=== PATIENT | male | born 1995 | race African-American/Black ===

== ENCOUNTER 2020-10-12 23:35 | Emergency (ER) | payer OTHER ==
[~2020-10-12] VITALS: Ht 185.4 cm; Wt 70.3 kg
[2020-10-12 23:45] VITALS: BP 110/64
--- NOTE | 2020-10-12 23:54 | NUR ---
PT TAKEN TO BED 12
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
[2020-10-13] MEDS ORDERED: MORPHINE SULFATE 4 MG/ML SYR IM ONE (00:05)
[2020-10-13] MEDS ORDERED: ONDANSETRON 4 MG ODT PO ONE (00:05)
--- NOTE | 2020-10-13 00:15 | NUR ---
X-RAY AT BEDSIDE
--- NOTE | 2020-10-13 02:18 | NUR ---
SPLINT TO BE APPLIED TO LEFT WRIST ALONG WITH SLING
[2020-10-13 02:36] VITALS: BP 115/73
== END 2020-10-13 02:38 | disposition home or self-care (01) ==
LOC: MED 23:35
DX: S63.592A Other specified sprain of left wrist, initial encounter (principal); Y04.0XXA Assault by unarmed brawl or fight, initial encounter; Y93.89 Activity, other specified; Y92.89 Other specified places as the place of occurrence of the external cause; Y99.8 Other external cause status
CPT/HCPCS: 29125; 73110; 73130; 96372; 99284; J2270; Q0162

== ENCOUNTER 2022-05-11 15:49 | Emergency (ER) | payer OTHER ==
[~2022-05-11] VITALS: Ht 185.4 cm; Wt 73.0 kg
[2022-05-11 16:17] VITALS: BP 131/83
[2022-05-11] MEDS ORDERED: ACETAMINOPHEN EXTRA STRENGTH 500 MG TAB ONE (16:25)
[2022-05-11] MEDS ORDERED: ACETAMINOPHEN EXTRA STRENGTH 500 MG TAB PO ONE (16:30)
--- NOTE | 2022-05-11 17:00 | NUR ---
RE-EVALUATED PT AFTER GIVING MEDICATION. NO REACTIONS AND TEMPERATURE STARTING TO GO DOWN. TEMP: 99.7
[2022-05-11] MEDS ORDERED: IMO2 PO (17:38)
[2022-05-11] MEDS ORDERED: ACET-2214 PO (17:38)
[2022-05-11] MEDS ORDERED: ONDA-188 PO (17:38)
[2022-05-11] MEDS ORDERED: PROM118S5 PO (17:38)
[2022-05-11 17:53] VITALS: BP 131/83
--- NOTE | 2022-05-11 17:53 | NUR ---
Patient discharged with v/s stable. Written and verbal after care instructions given and explained. Patient alert, oriented and verbalized understanding of instructions. Ambulatory with steady gait. All questions addressed prior to discharge. ID band removed. Patient advised to follow up with PMD. Rx of ZOFRAN, LOPERAMIDE, AND PROMETHAZINE-DM given. Patient educated on indication of medication including possible reaction and side effects. Opportunity to ask questions provided and answered.
[2022-05-11] MEDS ORDERED: NIRM1TAB PO (19:31)
== END 2022-05-11 17:53 | disposition home or self-care (01) ==
LOC: MED 15:49
DX: U07.1 COVID-19 (principal); J45.909 Unspecified asthma, uncomplicated
CPT/HCPCS: 99283